=== PATIENT | female | born 1975 | race Caucasian/White ===

== ENCOUNTER 2022-07-26 16:22 | Emergency (ER) | payer BC ==
[2022-07-26] MEDS: Aspirin 81 MG Tab.Chew PO ONE (16:35)
[2022-07-26] MEDS: Nitroglycerin 0.4 MG Tab.SL SL PRN (16:40)
[2022-07-26] MEDS: Albuterol/Ipratropium 3.0-0.5 MG/3 ML Neb Soln NEB PRN (16:51)
[2022-07-26] MEDS: Morphine 4 MG/ML VIAL IVPUSH ONE (17:55)
[2022-07-26] MEDS: Morphine 4 MG/ML VIAL ONE (18:01)
[2022-07-26] MEDS: GI Cocktail Oral Solution 30 ML PO ONE (18:05)
[2022-07-26 21:43] VITALS: BP 111/74; PULSE 70
== END 2022-07-26 21:05 | disposition home or self-care (01) ==
LOC: LB.ED 16:22
DX: R07.89 Other chest pain (principal); R06.02 Shortness of breath; Z87.891 Personal history of nicotine dependence; Z88.8 Allergy status to other drugs, medicaments and biological substances; Z95.5 Presence of coronary angioplasty implant and graft; Z79.899 Other long term (current) drug therapy
CPT/HCPCS: 36415; 71045; 80048; 81003; 83735; 83880; 84100; 84484; 85025; 85379; 93005; 94640; 96365; 96375; 99285; A9270-GY; J2270; J3475; J7620

== ENCOUNTER 2022-11-04 18:23 | Inpatient (IN) | payer BC ==
[2022-11-04] MEDS ORDERED: Sodium Chloride 0.9% 10 ML Syringe FLUSH PRN (18:50)
[2022-11-04 19:09] LABS: HEMATOCRIT 38.2 % (37.0-47.0); HEMOGLOBIN 13.2 g/dL (11.5-16.5); MEAN CORPUSCULAR HEMOGLOBIN 30.6 pg (27.0-32.0); MEAN CORPUSCULAR HGB CONC 34.6 g/dL (31.0-35.0); MEAN PLATELET VOLUME 10.4 fL (6.0-10.0); RED BLOOD CELL COUNT 4.31 M/uL (3.80-5.80); RED CELL DISTRIBUTION WIDTH 12.8 % (11.0-16.0); WHITE BLOOD CELL COUNT,WBC 9.1 K/uL (4.0-11.0)
[2022-11-04] MEDS ORDERED: Nitroglycerin 0.4 MG Tab.SL SL ONE (19:18)
[2022-11-04] MEDS ORDERED: Aspirin 81 MG Tab.Chew PO ONE (19:18)
[2022-11-04 19:40] LABS: A/G RATIO 0.9 (0.8-2.0); ALANINE AMINOTRANSFERASE,ALT 49 U/L (12-78); ALBUMIN 3.3 g/dL (3.4-5.0); ALKALINE PHOSPHATASE 87 U/L (46-116); ANION GAP 10.7 mmol/L (5.0-15.0); ASPARTATE AMNIOTRANSFERASE,AST 28 U/L (15-37); B-TYPE NATRIURETIC PEPTIDE,BNP 36 pg/mL (0-125); BILIRUBIN TOTAL 0.2 mg/dL (0.0-1.0); BLOOD UREA NITROGEN,BUN 10 mg/dL (8-26); CALCIUM 8.5 mg/dL (8.5-10.1); CARBON DIOXIDE,CO2 26.5 mmol/L (21.0-32.0); CHLORIDE,CL 106 mmol/L (98-107); CREATININE 0.83 mg/dL (0.55-1.02); EST CRCL DRUG DOSING (CG) 83.62 mL/min; ESTIMATED GFR 87 mL/min (>60); GLUCOSE RANDOM 186 mg/dL (74-100); MAGNESIUM 1.6 mg/dL (1.8-2.4); PHOSPHORUS 2.8 mg/dL (2.5-4.9); POTASSIUM,K 4.2 mmol/L (3.5-5.1); PROTEIN TOTAL,TP 6.9 g/dL (6.4-8.2); SODIUM,NA 139 mmol/L (136-145)
[2022-11-04 19:41] LABS: TROPONIN I HIGH SENSITIVITY < 4.0 pg/ml (<=60.4)
[2022-11-04] MEDS ORDERED: Ondansetron 4 MG/2 ML SDV IVPUSH ONE (19:54)
[2022-11-04] MEDS ORDERED: Morphine 4 MG/ML VIAL IVPUSH ONE (20:06)
[2022-11-04] MEDS ORDERED: Morphine 2 MG/ML SYRINGE IVPUSH ONE (21:23)
[2022-11-04] MEDS ORDERED: GI Cocktail Oral Solution 30 ML PO ONE (21:31)
[2022-11-04] MEDS ORDERED: Aluminum Hydroxide/Magnesium Hydroxide/Simethicone Susp 30 ML Cup PO ONE (22:59)
[2022-11-04] MEDS ORDERED: Heparin Sodium 5,000 Units/ML Vial IVPUSH ONE (23:10)
[2022-11-04] MEDS ORDERED: Heparin Sodium/D5W 25,000 UNITS/500 ML BAG IV SCH (23:15)
[2022-11-04] MEDS ORDERED: Sodium Chloride 0.9% 1,000 ML IV SCH (23:15)
[2022-11-04] MEDS ORDERED: Heparin Sodium 1,000 Units/ML 10 ML MDV IV SCH (23:45)
[2022-11-04] MEDS: Isosorbide Dinitrate 10 MG Tab PO SCH (23:55)
[2022-11-05] MEDS: Morphine 2 MG/ML SYRINGE IVPUSH PRN ×3 (00:01→08:53)
[2022-11-05] MEDS: Isosorbide Dinitrate 10 MG Tab PO SCH (07:38)
[2022-11-05] MEDS ORDERED: Levothyroxine 25 MCG Tab PO SCH (08:00)
[2022-11-05] MEDS ORDERED: Non-Formulary Medication 1 Each (Magnesium Oxide [Magnesium Oxide] 400 MG Tablet) PO SCH (08:00)
[2022-11-05] MEDS ORDERED: metFORMIN 1,000 MG Tab PO SCH (08:00)
[2022-11-05] MEDS ORDERED: Glimepiride 4 MG Tab PO SCH (08:00)
[2022-11-05] MEDS ORDERED: Nitroglycerin 0.4 MG Tab.SL SL ONE (08:47)
[2022-11-05] MEDS ORDERED: Nitroglycerin/D5W 25 MG/250 ML BOTTLE IV SCH (09:00)
[2022-11-05] MEDS ORDERED: Acetaminophen 325 MG Tab PO PRN (10:16)
[2022-11-05] MEDS ORDERED: Prochlorperazine 10 MG Tab PO PRN (10:16)
[2022-11-05 17:05] VITALS: BP 97/48; PULSE 63
[2022-11-05] MEDS ORDERED: atorvaSTATin 40 MG Tab PO SCH (20:00)
[2022-11-05] MEDS ORDERED: Gabapentin 300 MG Cap PO SCH (20:00)
== END 2022-11-05 18:02 | disposition home or self-care (01) | DRG 198 ==
LOC: LB.ED 18:23 → LB.MS 23:15 → OBSVTOIN 23:15
PROVIDERS: ADMIT Surgery; ATTEND Surgery
DX: R07.89 Other chest pain (principal); I25.10 Atherosclerotic heart disease of native coronary artery without angina pectoris; E83.42 Hypomagnesemia; M19.90 Unspecified osteoarthritis, unspecified site; G43.909 Migraine, unspecified, not intractable, without status migrainosus; E66.9 Obesity, unspecified; E11.9 Type 2 diabetes mellitus without complications; K21.9 Gastro-esophageal reflux disease without esophagitis; Z98.890 Other specified postprocedural states; Z88.8 Allergy status to other drugs, medicaments and biological substances; Z79.82 Long term (current) use of aspirin; Z79.84 Long term (current) use of oral hypoglycemic drugs; Z95.5 Presence of coronary angioplasty implant and graft; Z79.899 Other long term (current) drug therapy; Z90.49 Acquired absence of other specified parts of digestive tract; Z68.34 Body mass index [BMI] 34.0-34.9, adult
CPT/HCPCS: 36415; 71045; 80053; 82947; 83735; 83880; 84100; 84484; 85027; 85379; 85730; 93005; 93010; 96365; 96367; 96375; 96376; 99222; 99238; 99285-25; A9270-GY; J1644; J2270; J2405; J3475; Q0164

== ENCOUNTER 2023-05-01 08:34 | Inpatient (IN) | payer BC ==
[2023-05-01] MEDS ORDERED: Morphine 4 MG/ML VIAL IVPUSH ONE (09:15)
[2023-05-01] MEDS ORDERED: Ketorolac 30 MG/ML SDV IVPUSH ONE (09:15)
[2023-05-01] MEDS ORDERED: Naloxone 2 MG/2 ML Syringe IVPUSH PRN (09:15)
[2023-05-01] MEDS ORDERED: Ondansetron 4 MG Tab.DIS PO ONE (09:16)
[2023-05-01 09:25] LABS: BASOPHILS ABSOLUTE AUTO 0.05 K/uL (0.02-0.10); BASOPHILS PERCENT AUTO 0.5 % (0.0-0.5); EOSINOPHILS ABSOLUTE AUTO 0.28 K/uL (0.04-0.40); EOSINOPHILS PERCENT AUTO 2.8 % (1.0-5.0); HEMATOCRIT 37.2 % (37.0-47.0); HEMOGLOBIN 12.6 g/dL (11.5-16.5); LYMPHOCYTES ABSOLUTE AUTO 2.97 K/uL (1.50-4.00); LYMPHOCYTES PERCENT AUTO 29.3 % (20.0-40.0); MEAN CORPUSCULAR HEMOGLOBIN 29.9 pg (27.0-32.0); MEAN CORPUSCULAR HGB CONC 33.9 g/dL (31.0-35.0); MEAN CORPUSCULAR VOLUME 88 fL (76-96); MEAN PLATELET VOLUME 9.7 fL (6.0-10.0); MONOCYTES ABSOLUTE AUTO 0.85 K/uL (0.20-0.80); MONOCYTES PERCENT AUTO 8.4 % (3.0-10.0); NEUTROPHILS ABSOLUTE AUTO 5.99 K/uL (2.00-7.50); PLATELET COUNT,PLT 335 K/uL (150-500); RED BLOOD CELL COUNT 4.22 M/uL (3.80-5.80); RED CELL DISTRIBUTION WIDTH 13.4 % (11.0-16.0); WHITE BLOOD CELL COUNT,WBC 10.1 K/uL (4.0-11.0)
[2023-05-01] MEDS ORDERED: Lidocaine 1% 5 ML VIAL INJECT ONE (09:27)
[2023-05-01 09:46] LABS: A/G RATIO 0.7 (0.8-2.0); ALBUMIN 2.9 g/dL (3.4-5.0); ANION GAP 13.9 mmol/L (5.0-15.0); BILIRUBIN TOTAL 0.4 mg/dL (0.0-1.0); BUN/CREATININE RATIO 13.9 (6-25); CALCIUM 8.7 mg/dL (8.5-10.1); CARBON DIOXIDE,CO2 26.9 mmol/L (21.0-32.0); CREATININE 0.79 mg/dL (0.55-1.02); EST CRCL DRUG DOSING (CG) 87.85 mL/min; POTASSIUM,K 3.8 mmol/L (3.5-5.1); PROTEIN TOTAL,TP 7.3 g/dL (6.4-8.2)
[2023-05-01] MEDS ORDERED: ESCITALOPRAM OXALATE 10 MG PO SCH (10:30)
[2023-05-01] MEDS ORDERED: Non-Formulary Medication 1 Each (Magnesium Oxide [Magnesium Oxide] 400 MG Tablet) PO SCH (10:30)
[2023-05-01] MEDS: VANCOmycin 1.5 GM/300 ML 300 ML IV SCH ×2 (11:03→23:04)
[2023-05-01] MEDS: Aspirin 81 MG Tab.Chew PO SCH (11:18)
[2023-05-01] MEDS: Glimepiride 4 MG Tab PO SCH ×2 (11:18→20:01)
[2023-05-01] MEDS: Levothyroxine 25 MCG Tab PO SCH (11:19)
[2023-05-01] MEDS: Clopidogrel 75 MG Tab PO SCH (11:19)
[2023-05-01] MEDS: Escitalopram 20 MG Tab PO SCH (11:42)
[2023-05-01] MEDS: Magnesium Oxide 400 MG Tab PO SCH (11:43)
[2023-05-01] MEDS: Morphine 2 MG/ML SYRINGE IVPUSH PRN ×4 (11:49→20:02)
[2023-05-01 12:43] LABS: APPEARANCE,URINE SLIGHTLY CLOUDY (CLEAR); BILIRUBIN,URINE NEGATIVE (NEGATIVE); COLOR,URINE YELLOW; GLUCOSE,URINE NEGATIVE (NEGATIVE); KETONES,URINE NEGATIVE (NEGATIVE); LEUKOCYTE ESTERASE,URINE NEGATIVE (NEGATIVE); NITRITE,URINE NEGATIVE (NEGATIVE); OCCULT BLOOD,URINE NEGATIVE (NEGATIVE); PH,URINE 5.5 (5.0-8.0); PROTEIN,URINE NEGATIVE (NEGATIVE); UROBILINOGEN,URINE 0.2 E.U./dL (0.2-1.0)
[2023-05-01] MEDS: Sodium Chloride 0.9% 1,000 ML IV SCH ×2 (12:45→20:51)
[2023-05-01 12:47] LABS: BACTERIA,URINE FEW /HPF; MUCUS,URINE FEW /HPF; RBC,URINE NOT SEEN /HPF; SQUAMOUS EPITHELIAL CELLS,UR MODERATE /HPF; WBC,URINE 0-5 /HPF
[2023-05-01] MEDS: Piperacillin/Tazobactam 4.5 GM in Sodium Chloride 0.9% 100 ML IV SCH ×2 (12:47→20:50)
[2023-05-01] MEDS: Ketorolac 60 MG/2 ML SDV IVPUSH PRN (18:26)
[2023-05-01] MEDS: Gabapentin 300 MG Cap PO SCH (20:01)
[2023-05-01] MEDS: metFORMIN 1,000 MG Tab PO SCH (20:01)
[2023-05-01] MEDS: atorvaSTATin 40 MG Tab PO SCH (20:01)
[2023-05-01] MEDS: Morphine 4 MG/ML VIAL IVPUSH PRN (21:45)
[2023-05-02] MEDS: Morphine 4 MG/ML VIAL IVPUSH PRN ×4 (03:27→21:14)
[2023-05-02] MEDS: Ondansetron 4 MG/2 ML SDV IV PRN ×3 (04:43→15:18)
[2023-05-02] MEDS: Piperacillin/Tazobactam 4.5 GM in Sodium Chloride 0.9% 100 ML IV SCH ×3 (04:43→21:23)
[2023-05-02] MEDS: Ketorolac 60 MG/2 ML SDV IVPUSH PRN (07:09)
[2023-05-02] MEDS: Magnesium Oxide 400 MG Tab PO SCH (07:12)
[2023-05-02] MEDS: Glimepiride 4 MG Tab PO SCH ×2 (07:12→19:52)
[2023-05-02] MEDS: Escitalopram 20 MG Tab PO SCH (07:13)
[2023-05-02] MEDS: Clopidogrel 75 MG Tab PO SCH (07:13)
[2023-05-02] MEDS: Levothyroxine 25 MCG Tab PO SCH (07:14)
[2023-05-02] MEDS: metFORMIN 1,000 MG Tab PO SCH ×2 (07:14→19:53)
[2023-05-02] MEDS: Aspirin 81 MG Tab.Chew PO SCH (07:15)
[2023-05-02] MEDS: Sodium Chloride 0.9% 1,000 ML IV SCH (07:32)
[2023-05-02] MEDS: traMADol 50 MG Tab PO SCH ×2 (09:37→17:16)
[2023-05-02] MEDS: Lactobacillus Acidophilus/Lactobacillus Sporogenes (Probiotic) Tab PO SCH (09:38)
[2023-05-02 09:52] LABS: BASOPHILS ABSOLUTE AUTO 0.04 K/uL (0.02-0.10); BASOPHILS PERCENT AUTO 0.4 % (0.0-0.5); EOSINOPHILS ABSOLUTE AUTO 0.26 K/uL (0.04-0.40); EOSINOPHILS PERCENT AUTO 2.5 % (1.0-5.0); HEMOGLOBIN 11.4 g/dL (11.5-16.5); LYMPHOCYTES ABSOLUTE AUTO 3.52 K/uL (1.50-4.00); LYMPHOCYTES PERCENT AUTO 34.5 % (20.0-40.0); MEAN CORPUSCULAR HEMOGLOBIN 30.2 pg (27.0-32.0); MEAN CORPUSCULAR HGB CONC 33.5 g/dL (31.0-35.0); MEAN CORPUSCULAR VOLUME 90 fL (76-96); MEAN PLATELET VOLUME 9.5 fL (6.0-10.0); MONOCYTES ABSOLUTE AUTO 0.95 K/uL (0.20-0.80); MONOCYTES PERCENT AUTO 9.3 % (3.0-10.0); NEUTROPHILS ABSOLUTE AUTO 5.43 K/uL (2.00-7.50); NEUTROPHILS PERCENT AUTO 53.3 % (45.0-70.0); PLATELET COUNT,PLT 312 K/uL (150-500); RED BLOOD CELL COUNT 3.78 M/uL (3.80-5.80); RED CELL DISTRIBUTION WIDTH 13.5 % (11.0-16.0); WHITE BLOOD CELL COUNT,WBC 10.2 K/uL (4.0-11.0)
[2023-05-02 10:21] LABS: A/G RATIO 0.6 (0.8-2.0); ALBUMIN 2.5 g/dL (3.4-5.0); ANION GAP 12.5 mmol/L (5.0-15.0); BILIRUBIN TOTAL 0.3 mg/dL (0.0-1.0); BUN/CREATININE RATIO 13.2 (6-25); CALCIUM 8.5 mg/dL (8.5-10.1); CARBON DIOXIDE,CO2 27.6 mmol/L (21.0-32.0); CREATININE 0.76 mg/dL (0.55-1.02); EST CRCL DRUG DOSING (CG) 91.32 mL/min; POTASSIUM,K 4.1 mmol/L (3.5-5.1); PROTEIN TOTAL,TP 6.4 g/dL (6.4-8.2)
[2023-05-02] MEDS: VANCOmycin 1.5 GM/300 ML 300 ML IV SCH ×2 (11:19→23:01)
[2023-05-02] MEDS: atorvaSTATin 40 MG Tab PO SCH (19:53)
[2023-05-02] MEDS: Gabapentin 300 MG Cap PO SCH (19:53)
[2023-05-03] MEDS: traMADol 50 MG Tab PO SCH ×3 (00:41→17:34)
[2023-05-03] MEDS: Ketorolac 60 MG/2 ML SDV IVPUSH PRN ×2 (04:36→12:37)
[2023-05-03] MEDS: Piperacillin/Tazobactam 4.5 GM in Sodium Chloride 0.9% 100 ML IV SCH ×3 (04:36→20:10)
[2023-05-03] MEDS: Morphine 4 MG/ML VIAL IVPUSH PRN ×5 (07:31→20:09)
[2023-05-03] MEDS: Magnesium Oxide 400 MG Tab PO SCH (07:35)
[2023-05-03] MEDS: Aspirin 81 MG Tab.Chew PO SCH (07:37)
[2023-05-03] MEDS: Escitalopram 20 MG Tab PO SCH (07:38)
[2023-05-03] MEDS: Clopidogrel 75 MG Tab PO SCH (07:38)
[2023-05-03] MEDS: Levothyroxine 25 MCG Tab PO SCH (07:39)
[2023-05-03] MEDS: Glimepiride 4 MG Tab PO SCH ×2 (07:41→20:09)
[2023-05-03] MEDS: metFORMIN 1,000 MG Tab PO SCH ×2 (07:41→20:10)
[2023-05-03] MEDS: Ondansetron 4 MG/2 ML SDV IV PRN ×2 (07:42→13:51)
[2023-05-03 08:55] LABS: BASOPHILS ABSOLUTE AUTO 0.05 K/uL (0.02-0.10); BASOPHILS PERCENT AUTO 0.5 % (0.0-0.5); EOSINOPHILS ABSOLUTE AUTO 0.23 K/uL (0.04-0.40); EOSINOPHILS PERCENT AUTO 2.2 % (1.0-5.0); HEMATOCRIT 35.6 % (37.0-47.0); HEMOGLOBIN 11.9 g/dL (11.5-16.5); LYMPHOCYTES ABSOLUTE AUTO 3.85 K/uL (1.50-4.00); LYMPHOCYTES PERCENT AUTO 37.2 % (20.0-40.0); MEAN CORPUSCULAR HEMOGLOBIN 30.1 pg (27.0-32.0); MEAN CORPUSCULAR HGB CONC 33.4 g/dL (31.0-35.0); MEAN CORPUSCULAR VOLUME 90 fL (76-96); MEAN PLATELET VOLUME 9.9 fL (6.0-10.0); MONOCYTES ABSOLUTE AUTO 0.79 K/uL (0.20-0.80); MONOCYTES PERCENT AUTO 7.6 % (3.0-10.0); NEUTROPHILS ABSOLUTE AUTO 5.43 K/uL (2.00-7.50); NEUTROPHILS PERCENT AUTO 52.5 % (45.0-70.0); PLATELET COUNT,PLT 306 K/uL (150-500); RED BLOOD CELL COUNT 3.95 M/uL (3.80-5.80); RED CELL DISTRIBUTION WIDTH 13.5 % (11.0-16.0); WHITE BLOOD CELL COUNT,WBC 10.4 K/uL (4.0-11.0)
[2023-05-03] MEDS: Lidocaine 1% 5 ML VIAL ONE ×2 (09:22→09:33)
[2023-05-03 09:27] LABS: A/G RATIO 0.6 (0.8-2.0); ALBUMIN 2.6 g/dL (3.4-5.0); BILIRUBIN TOTAL 0.2 mg/dL (0.0-1.0); BUN/CREATININE RATIO 10.7 (6-25); CALCIUM 8.7 mg/dL (8.5-10.1); CREATININE 0.75 mg/dL (0.55-1.02); EST CRCL DRUG DOSING (CG) 92.54 mL/min; POTASSIUM,K 4.3 mmol/L (3.5-5.1); PROTEIN TOTAL,TP 6.7 g/dL (6.4-8.2)
[2023-05-03] MEDS: Lactobacillus Acidophilus/Lactobacillus Sporogenes (Probiotic) Tab PO SCH (09:29)
[2023-05-03] MEDS: VANCOmycin 1.5 GM/300 ML 300 ML IV SCH (11:00)
[2023-05-03 11:18] LABS: ANION GAP 15.9 mmol/L (5.0-15.0); CARBON DIOXIDE,CO2 24.4 mmol/L (21.0-32.0)
[2023-05-03] MEDS: Aluminum Hydroxide/Magnesium Hydroxide/Simethicone Susp 30 ML Cup PO PRN (16:45)
[2023-05-03] MEDS: Polyethylene Glycol 3350 Powder 17 GM Packet PO PRN (16:46)
[2023-05-03] MEDS: Gabapentin 300 MG Cap PO SCH (20:09)
[2023-05-03] MEDS: atorvaSTATin 40 MG Tab PO SCH (20:10)
[2023-05-04] MEDS: traMADol 50 MG Tab PO SCH ×3 (00:15→17:07)
[2023-05-04] MEDS: Ketorolac 60 MG/2 ML SDV IVPUSH PRN (04:24)
[2023-05-04] MEDS: Ondansetron 4 MG/2 ML SDV IV PRN ×2 (04:24→11:13)
[2023-05-04] MEDS: Piperacillin/Tazobactam 4.5 GM in Sodium Chloride 0.9% 100 ML IV SCH ×3 (05:49→20:44)
[2023-05-04] MEDS: Morphine 4 MG/ML VIAL IVPUSH PRN ×2 (06:00→08:00)
[2023-05-04] MEDS: Levothyroxine 25 MCG Tab PO SCH (08:13)
[2023-05-04] MEDS: Polyethylene Glycol 3350 Powder 17 GM Packet PO PRN (08:21)
[2023-05-04] MEDS: Aspirin 81 MG Tab.Chew PO SCH (08:21)
[2023-05-04] MEDS: metFORMIN 1,000 MG Tab PO SCH ×2 (08:22→19:53)
[2023-05-04] MEDS: Clopidogrel 75 MG Tab PO SCH (08:22)
[2023-05-04] MEDS: Magnesium Oxide 400 MG Tab PO SCH (08:24)
[2023-05-04] MEDS: Glimepiride 4 MG Tab PO SCH ×2 (08:24→19:53)
[2023-05-04] MEDS: Escitalopram 20 MG Tab PO SCH (08:24)
[2023-05-04 08:57] LABS: BASOPHILS ABSOLUTE AUTO 0.05 K/uL (0.02-0.10); BASOPHILS PERCENT AUTO 0.5 % (0.0-0.5); EOSINOPHILS ABSOLUTE AUTO 0.26 K/uL (0.04-0.40); EOSINOPHILS PERCENT AUTO 2.5 % (1.0-5.0); HEMATOCRIT 33.9 % (37.0-47.0); HEMOGLOBIN 11.3 g/dL (11.5-16.5); LYMPHOCYTES ABSOLUTE AUTO 4.14 K/uL (1.50-4.00); LYMPHOCYTES PERCENT AUTO 39.1 % (20.0-40.0); MEAN CORPUSCULAR HGB CONC 33.3 g/dL (31.0-35.0); MEAN CORPUSCULAR VOLUME 90 fL (76-96); MEAN PLATELET VOLUME 9.4 fL (6.0-10.0); MONOCYTES ABSOLUTE AUTO 0.83 K/uL (0.20-0.80); MONOCYTES PERCENT AUTO 7.8 % (3.0-10.0); NEUTROPHILS ABSOLUTE AUTO 5.31 K/uL (2.00-7.50); NEUTROPHILS PERCENT AUTO 50.1 % (45.0-70.0); PLATELET COUNT,PLT 320 K/uL (150-500); RED BLOOD CELL COUNT 3.77 M/uL (3.80-5.80); RED CELL DISTRIBUTION WIDTH 13.7 % (11.0-16.0); WHITE BLOOD CELL COUNT,WBC 10.6 K/uL (4.0-11.0)
[2023-05-04 09:16] LABS: A/G RATIO 0.7 (0.8-2.0); ALBUMIN 2.8 g/dL (3.4-5.0); ANION GAP 13.6 mmol/L (5.0-15.0); BILIRUBIN TOTAL 0.3 mg/dL (0.0-1.0); BUN/CREATININE RATIO 9.3 (6-25); CALCIUM 9.2 mg/dL (8.5-10.1); CARBON DIOXIDE,CO2 26.4 mmol/L (21.0-32.0); CREATININE 0.97 mg/dL (0.55-1.02); EST CRCL DRUG DOSING (CG) 71.55 mL/min; PROTEIN TOTAL,TP 6.9 g/dL (6.4-8.2)
[2023-05-04] MEDS ORDERED: HYDROmorphone 2 MG/ML Syringe IVPUSH ONE (09:24)
[2023-05-04] MEDS ORDERED: Bisacodyl 10 MG Supp RECTAL ONE (09:26)
[2023-05-04] MEDS: Calcium Polycarbophil 625 MG Tab PO SCH (09:42)
[2023-05-04] MEDS: Multivitamins with Iron/Calcium/Folic Acid/Minerals Tab PO SCH (09:42)
[2023-05-04] MEDS: Lactobacillus Acidophilus/Lactobacillus Sporogenes (Probiotic) Tab PO SCH (09:42)
[2023-05-04] MEDS: VANCOmycin 1.5 GM/300 ML 300 ML IV SCH ×2 (11:06→23:57)
[2023-05-04] MEDS: HYDROmorphone 2 MG/ML Syringe IVPUSH PRN ×2 (14:31→20:44)
[2023-05-04] MEDS: Aluminum Hydroxide/Magnesium Hydroxide/Simethicone Susp 30 ML Cup PO PRN ×2 (16:17→19:57)
[2023-05-04] MEDS: atorvaSTATin 40 MG Tab PO SCH (19:53)
[2023-05-04] MEDS: Gabapentin 300 MG Cap PO SCH (19:54)
[2023-05-05] MEDS: traMADol 50 MG Tab PO SCH ×2 (01:00→08:19)
[2023-05-05] MEDS: HYDROmorphone 2 MG/ML Syringe IVPUSH PRN ×3 (03:25→10:32)
[2023-05-05] MEDS: Piperacillin/Tazobactam 4.5 GM in Sodium Chloride 0.9% 100 ML IV SCH (04:45)
[2023-05-05] MEDS: Levothyroxine 25 MCG Tab PO SCH (07:19)
[2023-05-05 07:56] LABS: BASOPHILS ABSOLUTE AUTO 0.04 K/uL (0.02-0.10); BASOPHILS PERCENT AUTO 0.4 % (0.0-0.5); EOSINOPHILS ABSOLUTE AUTO 0.19 K/uL (0.04-0.40); EOSINOPHILS PERCENT AUTO 1.7 % (1.0-5.0); HEMATOCRIT 33.9 % (37.0-47.0); HEMOGLOBIN 11.3 g/dL (11.5-16.5); LYMPHOCYTES ABSOLUTE AUTO 3.68 K/uL (1.50-4.00); LYMPHOCYTES PERCENT AUTO 32.3 % (20.0-40.0); MEAN CORPUSCULAR HEMOGLOBIN 30.1 pg (27.0-32.0); MEAN CORPUSCULAR HGB CONC 33.3 g/dL (31.0-35.0); MEAN CORPUSCULAR VOLUME 90 fL (76-96); MEAN PLATELET VOLUME 9.5 fL (6.0-10.0); MONOCYTES ABSOLUTE AUTO 0.85 K/uL (0.20-0.80); MONOCYTES PERCENT AUTO 7.4 % (3.0-10.0); NEUTROPHILS ABSOLUTE AUTO 6.65 K/uL (2.00-7.50); NEUTROPHILS PERCENT AUTO 58.2 % (45.0-70.0); PLATELET COUNT,PLT 329 K/uL (150-500); RED BLOOD CELL COUNT 3.76 M/uL (3.80-5.80); RED CELL DISTRIBUTION WIDTH 13.6 % (11.0-16.0); WHITE BLOOD CELL COUNT,WBC 11.4 K/uL (4.0-11.0)
[2023-05-05] MEDS: Aspirin 81 MG Tab.Chew PO SCH (08:07)
[2023-05-05] MEDS: Multivitamins with Iron/Calcium/Folic Acid/Minerals Tab PO SCH (08:08)
[2023-05-05] MEDS: metFORMIN 1,000 MG Tab PO SCH (08:08)
[2023-05-05] MEDS: Magnesium Oxide 400 MG Tab PO SCH (08:09)
[2023-05-05] MEDS: Clopidogrel 75 MG Tab PO SCH (08:09)
[2023-05-05] MEDS: Glimepiride 4 MG Tab PO SCH (08:09)
[2023-05-05] MEDS: Escitalopram 20 MG Tab PO SCH (08:11)
[2023-05-05 08:14] LABS: A/G RATIO 0.6 (0.8-2.0); ALBUMIN 2.8 g/dL (3.4-5.0); ANION GAP 13.5 mmol/L (5.0-15.0); BILIRUBIN TOTAL 0.3 mg/dL (0.0-1.0); BUN/CREATININE RATIO 10.8 (6-25); CALCIUM 8.8 mg/dL (8.5-10.1); CARBON DIOXIDE,CO2 27.4 mmol/L (21.0-32.0); CREATININE 0.83 mg/dL (0.55-1.02); EST CRCL DRUG DOSING (CG) 83.62 mL/min; POTASSIUM,K 3.9 mmol/L (3.5-5.1); PROTEIN TOTAL,TP 7.4 g/dL (6.4-8.2)
[2023-05-05] MEDS ORDERED: Calcium Polycarbophil 625 MG Tab ONE (08:14)
[2023-05-05] MEDS: Calcium Polycarbophil 625 MG Tab PO SCH (08:18)
[2023-05-05] MEDS: Lactobacillus Acidophilus/Lactobacillus Sporogenes (Probiotic) Tab PO SCH (09:00)
[2023-05-05] MEDS: VANCOmycin 1.5 GM/300 ML 300 ML IV SCH (09:00)
== END 2023-05-05 10:40 | disposition home or self-care (01) | DRG 518 ==
LOC: LB.ED 08:34 → LB.MS 10:20
PROVIDERS: ADMIT Physician Assistant; ATTEND Physician Assistant
PROC: 0U9MXZZ Drainage of Vulva, External Approach (ICD-10-PCS; principal; 2023-05-01)
DX: N76.4 Abscess of vulva (principal); K59.00 Constipation, unspecified; M19.90 Unspecified osteoarthritis, unspecified site; Z11.52 Encounter for screening for COVID-19; G43.909 Migraine, unspecified, not intractable, without status migrainosus; F41.9 Anxiety disorder, unspecified; F32.A Depression, unspecified; N90.7 Vulvar cyst; E66.9 Obesity, unspecified; E11.9 Type 2 diabetes mellitus without complications; Z98.890 Other specified postprocedural states; Z79.82 Long term (current) use of aspirin; Z79.84 Long term (current) use of oral hypoglycemic drugs; Z79.899 Other long term (current) drug therapy; Z88.8 Allergy status to other drugs, medicaments and biological substances; Z87.440 Personal history of urinary (tract) infections; Z87.442 Personal history of urinary calculi; Z90.49 Acquired absence of other specified parts of digestive tract; Z68.34 Body mass index [BMI] 34.0-34.9, adult
CPT/HCPCS: 36415; 74176; 80053; 80202; 81001; 82947; 85025; 86140; 87075; 96374; 96375; 99284-25; A9270-GY; J1170; J1885; J2270; J2405; J2543; J3370; J3490; J7030; Q0162; U0002

== ENCOUNTER 2024-01-29 07:03 | Emergency (ER) | payer BC ==
[2024-01-29 08:44] LABS: BASOPHILS ABSOLUTE AUTO 0.08 K/uL (0.02-0.10); BASOPHILS PERCENT AUTO 0.8 % (0.0-0.5); EOSINOPHILS ABSOLUTE AUTO 0.06 K/uL (0.04-0.40); EOSINOPHILS PERCENT AUTO 0.6 % (1.0-5.0); HEMATOCRIT 40.2 % (37.0-47.0); HEMOGLOBIN 13.4 g/dL (11.5-16.5); LYMPHOCYTES ABSOLUTE AUTO 1.96 K/uL (1.50-4.00); LYMPHOCYTES PERCENT AUTO 18.8 % (20.0-40.0); MEAN CORPUSCULAR HEMOGLOBIN 29.7 pg (27.0-32.0); MEAN CORPUSCULAR HGB CONC 33.3 g/dL (31.0-35.0); MEAN CORPUSCULAR VOLUME 89 fL (76-96); MONOCYTES ABSOLUTE AUTO 1.23 K/uL (0.20-0.80); MONOCYTES PERCENT AUTO 11.8 % (3.0-10.0); NEUTROPHILS ABSOLUTE AUTO 7.11 K/uL (2.00-7.50); PLATELET COUNT,PLT 287 K/uL (150-500); RED BLOOD CELL COUNT 4.51 M/uL (3.80-5.80); RED CELL DISTRIBUTION WIDTH 14.3 % (11.0-16.0); WHITE BLOOD CELL COUNT,WBC 10.4 K/uL (4.0-11.0)
[2024-01-29 08:46] LABS: APPEARANCE,URINE CLEAR (CLEAR); BILIRUBIN,URINE NEGATIVE (NEGATIVE); COLOR,URINE YELLOW; GLUCOSE,URINE 500 mg/dL (NEGATIVE); KETONES,URINE TRACE mg/dL (NEGATIVE); LEUKOCYTE ESTERASE,URINE NEGATIVE (NEGATIVE); NITRITE,URINE NEGATIVE (NEGATIVE); OCCULT BLOOD,URINE NEGATIVE (NEGATIVE); PH,URINE 6.5 (5.0-8.0); PROTEIN,URINE NEGATIVE (NEGATIVE); UROBILINOGEN,URINE 0.2 E.U./dL (0.2-1.0)
[2024-01-29 09:57] LABS: INFLUENZA A NAA NEGATIVE (NEGATIVE); INFLUENZA B NAA NEGATIVE (NEGATIVE); RESPIRATORY SYNCYTIAL VIR NAA NEGATIVE (NEGATIVE)
[2024-01-29 10:04] LABS: CORONAVIRUS COVID-19 NAA POSITIVE (NEGATIVE)
== END 2024-01-29 10:51 | disposition home or self-care (01) ==
LOC: LB.ED 07:03
DX: U07.1 COVID-19 (principal); I25.10 Atherosclerotic heart disease of native coronary artery without angina pectoris; Z95.5 Presence of coronary angioplasty implant and graft; Z90.49 Acquired absence of other specified parts of digestive tract; Z88.8 Allergy status to other drugs, medicaments and biological substances
CPT/HCPCS: 0241U; 36415; 71046; 81003; 85025; 99283

== ENCOUNTER 2024-04-02 10:36 | Emergency (ER) | payer BC ==
[2024-04-02] MEDS: Aspirin 81 MG Tab.Chew PO ONE (10:52)
[2024-04-02] MEDS: Nitroglycerin 0.4 MG Tab.SL SL ONE (10:58)
[2024-04-02] MEDS: Ondansetron 4 MG/2 ML SDV IVPUSH ONE (11:10)
[2024-04-02] MEDS: fentaNYL 100 MCG/2 ML SDV IVPUSH ONE (11:12)
[2024-04-02 11:23] LABS: BASOPHILS ABSOLUTE AUTO 0.07 K/uL (0.02-0.10); BASOPHILS PERCENT AUTO 0.4 % (0.0-0.5); EOSINOPHILS ABSOLUTE AUTO 0.11 K/uL (0.04-0.40); EOSINOPHILS PERCENT AUTO 0.7 % (1.0-5.0); HEMATOCRIT 37.9 % (37.0-47.0); HEMOGLOBIN 12.8 g/dL (11.5-16.5); LYMPHOCYTES ABSOLUTE AUTO 5.09 K/uL (1.50-4.00); LYMPHOCYTES PERCENT AUTO 31.1 % (20.0-40.0); MEAN CORPUSCULAR HEMOGLOBIN 29.9 pg (27.0-32.0); MEAN CORPUSCULAR HGB CONC 33.8 g/dL (31.0-35.0); MEAN CORPUSCULAR VOLUME 89 fL (76-96); MEAN PLATELET VOLUME 10.1 fL (6.0-10.0); MONOCYTES ABSOLUTE AUTO 1.15 K/uL (0.20-0.80); NEUTROPHILS ABSOLUTE AUTO 9.94 K/uL (2.00-7.50); NEUTROPHILS PERCENT AUTO 60.8 % (45.0-70.0); PLATELET COUNT,PLT 338 K/uL (150-500); RED BLOOD CELL COUNT 4.28 M/uL (3.80-5.80); WHITE BLOOD CELL COUNT,WBC 16.4 K/uL (4.0-11.0)
[2024-04-02 11:45] LABS: A/G RATIO 0.8 (0.8-2.0); ALANINE AMINOTRANSFERASE,ALT 47 U/L (12-78); ALBUMIN 3.2 g/dL (3.4-5.0); ALKALINE PHOSPHATASE 73 U/L (46-116); ANION GAP 16.6 mmol/L (5.0-15.0); ASPARTATE AMNIOTRANSFERASE,AST 21 U/L (15-37); BILIRUBIN TOTAL 0.3 mg/dL (0.0-1.0); BLOOD UREA NITROGEN,BUN 16 mg/dL (8-26); BUN/CREATININE RATIO 22.5 (6-25); CARBON DIOXIDE,CO2 25.5 mmol/L (21.0-32.0); CHLORIDE,CL 102 mmol/L (98-107); CREATININE 0.71 mg/dL (0.55-1.02); ESTIMATED GFR 104 mL/min (>60); GLUCOSE RANDOM 201 mg/dL (74-100); POTASSIUM,K 4.1 mmol/L (3.5-5.1); PROTEIN TOTAL,TP 7.2 g/dL (6.4-8.2); SODIUM,NA 140 mmol/L (136-145)
[2024-04-02 12:07] LABS: PTT,PARTIAL THROMBOPLSTIN TIME 22.3 SECONDS (24.4-33.2)
[2024-04-02 12:08] LABS: PROTHROMBIN TIME 10.4 sec (9.0-11.5)
[2024-04-02 12:09] LABS: TSH ULTRASENSITIVE 7.279 uIU/mL (0.358-3.740)
[2024-04-02 12:11] LABS: EST CRCL DRUG DOSING (CG) 96.69 mL/min
[2024-04-02] MEDS: fentaNYL 100 MCG/2 ML SDV ONE (12:30)
[2024-04-02 12:31] LABS: TROPONIN I HIGH SENSITIVITY < 4.0 pg/ml (<=60.4)
[2024-04-02] MEDS: Metoclopramide 10 MG/2 ML SDV IVPUSH ONE (12:58)
[2024-04-02] MEDS: Metoclopramide 10 MG/2 ML SDV ONE (14:04)
[2024-04-02 17:05] VITALS: BP 104/65; PULSE 67
== END 2024-04-02 15:30 | disposition home or self-care (01) ==
LOC: LB.ED 10:36
DX: R07.9 Chest pain, unspecified (principal); E11.9 Type 2 diabetes mellitus without complications; E03.9 Hypothyroidism, unspecified; E66.9 Obesity, unspecified; Z68.35 Body mass index [BMI] 35.0-35.9, adult; Z90.49 Acquired absence of other specified parts of digestive tract; Z88.8 Allergy status to other drugs, medicaments and biological substances; Z79.890 Hormone replacement therapy; Z79.84 Long term (current) use of oral hypoglycemic drugs; Z79.899 Other long term (current) drug therapy
CPT/HCPCS: 36415; 71045; 80053; 83735; 83880; 84443; 84484; 85025; 85379; 85610; 85651; 85730; 86140; 93005; 93010; 96365; 96375; 99284; 99285-25; A9270-GY; J2405; J2765; J3010; J3475

== ENCOUNTER 2024-06-12 12:23 | Emergency (ER) | payer BC ==
[2024-06-12] MEDS: Acetaminophen/Codeine 300-30 MG Tab PO ONE (13:14)
[2024-06-12 13:39] LABS: INFLUENZA A NAA POSITIVE (NEGATIVE); INFLUENZA B NAA NEGATIVE (NEGATIVE); RESPIRATORY SYNCYTIAL VIR NAA NEGATIVE (NEGATIVE)
[2024-06-12 13:41] LABS: CORONAVIRUS COVID-19 NAA NEGATIVE (NEGATIVE)
[2024-06-12] MEDS ORDERED: Oseltamivir 75 MG Cap ONE (14:00)
[2024-06-12] MEDS ORDERED: Acetaminophen/Codeine 300-30 MG Tab ONE (14:00)
[2024-06-12] MEDS: Acetaminophen/Codeine 300-30 MG Tab ONE ×2 (14:16)
== END 2024-06-12 14:13 | disposition home or self-care (01) ==
LOC: LB.ED 12:23
DX: J10.1 Influenza due to other identified influenza virus with other respiratory manifestations (principal); E11.9 Type 2 diabetes mellitus without complications; E03.9 Hypothyroidism, unspecified; E66.9 Obesity, unspecified; Z68.35 Body mass index [BMI] 35.0-35.9, adult; Z90.49 Acquired absence of other specified parts of digestive tract; Z87.891 Personal history of nicotine dependence; Z88.8 Allergy status to other drugs, medicaments and biological substances; Z79.84 Long term (current) use of oral hypoglycemic drugs; Z79.890 Hormone replacement therapy; Z79.899 Other long term (current) drug therapy
CPT/HCPCS: 0241U; 71046; 99283; A9270-GY

== ENCOUNTER 2024-06-16 14:24 | Emergency (ER) | payer BC ==
[2024-06-16 15:17] LABS: BASOPHILS ABSOLUTE AUTO 0.02 K/uL (0.02-0.10); BASOPHILS PERCENT AUTO 0.3 % (0.0-0.5); EOSINOPHILS ABSOLUTE AUTO 0.13 K/uL (0.04-0.40); EOSINOPHILS PERCENT AUTO 1.8 % (1.0-5.0); HEMATOCRIT 37.9 % (37.0-47.0); HEMOGLOBIN 12.9 g/dL (11.5-16.5); LYMPHOCYTES ABSOLUTE AUTO 3.33 K/uL (1.50-4.00); LYMPHOCYTES PERCENT AUTO 46.4 % (20.0-40.0); MEAN CORPUSCULAR HEMOGLOBIN 29.8 pg (27.0-32.0); MEAN CORPUSCULAR VOLUME 88 fL (76-96); MEAN PLATELET VOLUME 9.9 fL (6.0-10.0); MONOCYTES ABSOLUTE AUTO 0.57 K/uL (0.20-0.80); MONOCYTES PERCENT AUTO 7.9 % (3.0-10.0); NEUTROPHILS ABSOLUTE AUTO 3.12 K/uL (2.00-7.50); NEUTROPHILS PERCENT AUTO 43.6 % (45.0-70.0); PLATELET COUNT,PLT 209 K/uL (150-500); RED BLOOD CELL COUNT 4.33 M/uL (3.80-5.80); RED CELL DISTRIBUTION WIDTH 13.5 % (11.0-16.0); WHITE BLOOD CELL COUNT,WBC 7.2 K/uL (4.0-11.0)
[2024-06-16 15:30] LABS: ANION GAP 13.8 mmol/L (5.0-15.0); BLOOD UREA NITROGEN,BUN 11 mg/dL (8-26); BUN/CREATININE RATIO 16.7 (6-25); CALCIUM 8.7 mg/dL (8.5-10.1); CARBON DIOXIDE,CO2 26.7 mmol/L (21.0-32.0); CHLORIDE,CL 104 mmol/L (98-107); CREATININE 0.66 mg/dL (0.55-1.02); ESTIMATED GFR 107 mL/min (>60); GLUCOSE RANDOM 190 mg/dL (74-100); MAGNESIUM 1.5 mg/dL (1.8-2.4); POTASSIUM,K 3.5 mmol/L (3.5-5.1); SODIUM,NA 141 mmol/L (136-145)
[2024-06-16] MEDS: Ibuprofen 800 MG Tab PO ONE (15:35)
== END 2024-06-16 15:40 | disposition home or self-care (01) ==
LOC: LB.ED 14:24
DX: J10.1 Influenza due to other identified influenza virus with other respiratory manifestations (principal); I10 Essential (primary) hypertension; E11.9 Type 2 diabetes mellitus without complications; E03.9 Hypothyroidism, unspecified; E66.9 Obesity, unspecified; Z90.49 Acquired absence of other specified parts of digestive tract; Z88.8 Allergy status to other drugs, medicaments and biological substances; Z79.84 Long term (current) use of oral hypoglycemic drugs; Z79.890 Hormone replacement therapy; Z79.899 Other long term (current) drug therapy
CPT/HCPCS: 36415; 80048; 83735; 85025; 99283; 99284; A9270

== ENCOUNTER 2024-10-23 08:20 | Emergency (ER) | payer BC ==
[2024-10-23] MEDS ORDERED: Sodium Chloride 0.9% 10 ML Syringe FLUSH PRN (08:32)
[2024-10-23] MEDS: Prochlorperazine 10 MG/2 ML SDV IVPUSH ONE (08:41)
[2024-10-23 08:54] LABS: HEMATOCRIT 37.2 % (37.0-47.0); HEMOGLOBIN 12.7 g/dL (11.5-16.5); MEAN CORPUSCULAR HGB CONC 34.1 g/dL (31.0-35.0); MEAN PLATELET VOLUME 10.3 fL (6.0-10.0); RED BLOOD CELL COUNT 4.23 M/uL (3.80-5.80); RED CELL DISTRIBUTION WIDTH 13.8 % (11.0-16.0); WHITE BLOOD CELL COUNT,WBC 12.1 K/uL (4.0-11.0)
[2024-10-23] MEDS: diphenhydrAMINE 50 MG/ML SDV IVPUSH ONE (09:05)
[2024-10-23] MEDS: diazePAM 10 MG/2 ML Syringe IVPUSH ONE (09:06)
[2024-10-23] MEDS: diazePAM 5 MG/ML MDV ONE (09:09)
[2024-10-23 09:22] LABS: ANION GAP 14.9 mmol/L (5.0-15.0); BLOOD UREA NITROGEN,BUN 13 mg/dL (8-26); BUN/CREATININE RATIO 15.9 (6-25); CARBON DIOXIDE,CO2 24.8 mmol/L (21.0-32.0); CHLORIDE,CL 100 mmol/L (98-107); CREATININE 0.82 mg/dL (0.55-1.02); ESTIMATED GFR 87 mL/min (>60); GLUCOSE RANDOM 144 mg/dL (74-100); MAGNESIUM 1.6 mg/dL (1.8-2.4); POTASSIUM,K 3.7 mmol/L (3.5-5.1); SODIUM,NA 136 mmol/L (136-145)
[2024-10-23 09:36] LABS: TROPONIN I HIGH SENSITIVITY < 4.0 pg/ml (<=60.4)
== END 2024-10-23 11:05 | disposition home or self-care (01) ==
LOC: LB.ED 08:20
DX: R42 Dizziness and giddiness (principal); H66.91 Otitis media, unspecified, right ear; E78.00 Pure hypercholesterolemia, unspecified; E11.9 Type 2 diabetes mellitus without complications; E03.9 Hypothyroidism, unspecified; Z88.8 Allergy status to other drugs, medicaments and biological substances; Z79.84 Long term (current) use of oral hypoglycemic drugs; Z79.899 Other long term (current) drug therapy
CPT/HCPCS: 36415; 80048; 83735; 84484; 85027; 93005; 96374; 96375; 99283; 99284-25; A9270-GY; J0780; J1200; J3360